=== PATIENT | female | born 2000 | race Caucasian/White ===

== ENCOUNTER 2019-08-28 03:06 | Emergency (ER) | payer SELFPAY ==
[~2019-08-28] VITALS: Ht 160 cm; Wt 87.0 kg
[2019-08-28 04:24] VITALS: BP 116/74
== END 2019-08-28 04:24 | disposition home or self-care (01) ==
LOC: ER 03:06
DX: H66.93 Otitis media, unspecified, bilateral (principal); B34.9 Viral infection, unspecified
CPT/HCPCS: 99283